=== PATIENT | male | born 1990 | race Caucasian/White ===

== ENCOUNTER 2017-08-29 09:58 | Emergency (ER) | payer MEDICAID ==
[~2017-08-29] VITALS: Ht 177.8 cm; Wt 64.0 kg
[~2017-08-29 09:58] MED LIST: NAPR-1144 PO
[2017-08-29 11:22] VITALS: BP 105/68
== END 2017-08-29 11:23 | disposition home or self-care (01) ==
LOC: ER 09:58
DX: Z48.01 Encounter for change or removal of surgical wound dressing (principal); L02.512 Cutaneous abscess of left hand; E11.9 Type 2 diabetes mellitus without complications; F17.200 Nicotine dependence, unspecified, uncomplicated; F15.10 Other stimulant abuse, uncomplicated; F11.10 Opioid abuse, uncomplicated; Z79.899 Other long term (current) drug therapy
CPT/HCPCS: 99282

== ENCOUNTER 2024-03-06 12:57 | Emergency (ER) | payer MEDICAID ==
[~2024-03-06] VITALS: Ht 170.2 cm; Wt 67.0 kg
[~2024-03-06 12:57] MED LIST changes: +IBUP-1985 PO
[2024-03-06 13:29] LABS: BASOPHILS # (AUTO) 0.1 X10'3 (0-0.2); BASOPHILS % (AUTO) 0.8 % (0-1); EOSINOPHILS # (AUTO) 0.4 X10'3 (0-0.9); EOSINOPHILS % (AUTO) 4.1 % (0-6); HEMATOCRIT 39.6 % (42.0-52.0); HEMOGLOBIN 13.1 g/dl (14.0-17.9); LYMPHOCYTES # (AUTO) 1.8 X10'3 (1.1-4.8); LYMPHOCYTES % (AUTO) 17.4 % (21-51); MEAN CORPUSCULAR HEMOGLOBIN 27.7 PG (27.0-31.0); MEAN CORPUSCULAR VOLUME 83.9 FL (78-98); MEAN PLATELET VOLUME 8.8 FL (7.4-10.4); MONOCYTES % (AUTO) 9.9 % (2-12); NEUTROPHILS # (AUTO) 7.2 X10'3 (1.8-7.7); NEUTROPHILS % (AUTO) 67.8 % (42-75); PLATELET COUNT 228 X10'3 (140-440); RED BLOOD COUNT 4.72 X10'6 (4.70-6.10); RED CELL DISTRIBUTION WIDTH 13.9 % (11.5-14.5); WHITE BLOOD COUNT 10.6 X10'3 (4.5-11.0)
[2024-03-06 13:40] LABS: ALBUMIN 3.1 G/DL (3.4-5.0); ANION GAP 5 (8-16); BLOOD UREA NITROGEN 6 MG/DL (7-18); CHLORIDE 103 MMOL/L (99-107); CREATININE 0.75 MG/DL (0.60-1.10); GLUCOSE 154 MG/DL (70-104); POTASSIUM 4.1 MMOL/L (3.5-5.1); SODIUM 137 MMOL/L (135-145); TOTAL CARBON DIOXIDE 28.6 MMOL/L (24-32); eCRCL 132 ML/MIN; eGFR > 90 ML/MIN
[2024-03-06] MEDS ORDERED: iohexol 300mg/ml 100ml inj. ONE (14:13)
[2024-03-06] MEDS: CefTRIAXone 1000mg IM Kit (w/lidocaine diluent) IM ONE (15:20)
[2024-03-06 15:24] VITALS: BP 116/79; PULSE 118; RESP 16; TEMP 98.2; O2SAT 96
[2024-03-06] MEDS ORDERED: SULF1TAB49 PO (16:19)
[2024-03-06] MEDS ORDERED: MUPI15CR12 TOP (16:19)
== END 2024-03-06 16:40 | disposition home or self-care (01) ==
LOC: ER 12:58
DX: L02.01 Cutaneous abscess of face (principal); E11.9 Type 2 diabetes mellitus without complications; F20.9 Schizophrenia, unspecified; F15.90 Other stimulant use, unspecified, uncomplicated; F11.90 Opioid use, unspecified, uncomplicated; Z79.899 Other long term (current) drug therapy; Z90.49 Acquired absence of other specified parts of digestive tract
CPT/HCPCS: 36415; 80048; 83605; 84145; 85025; 87040; 96372; 99283; J0696; Q9967

== ENCOUNTER 2025-03-01 17:12 | Emergency (ER) | payer MEDICAID ==
[~2025-03-01] VITALS: Ht 177.8 cm; Wt 94.1 kg
[~2025-03-01 17:12] MED LIST changes: -IBUP-1985 PO; +IBUP600T52 PO; +MUPI15CR12 TOP
[2025-03-01 17:38] VITALS: BP 114/84; PULSE 127; RESP 20; O2SAT 97
[2025-03-01] MEDS ORDERED: NYST15PO13 TOP (20:02)
--- NOTE | 2025-03-01 20:03 | Physician Documentation ---
History of Present Illness ~ General Chief Complaint: Multiple Medical Complaints Stated Complaint: FOOT SWOLLEN Time Seen by MD: 18:15 OK to notify your PCP?: Yes Primary Medical Doctor: Dr. Figueroa Source: patient Mode of Arrival: POV Exam Limitations: no limitations History of Present Illness Initial Comments 34-year-old male presents with his mother for his right foot being swollen as w ell as his left nipple being tender. He also describes that he for the past week he has had a rash in his groin which she has been putting diaper cream on. He states that he was sitting in a static position with 1 leg up and his right leg dangling off the site of the bed for the past 2 days and then he noticed the swelling and tightness in his foot. When I question his high heart rate on arrival, he admitted to meth use within the past 2 days. Medication Reconciliation Allergies: Coded Allergies: No Known Allergies (Unverified , 03/01/25) Scheduled Mupirocin Calcium (Mupirocin), 1 APPLIC TOP Q8H Naproxen Sodium (Naproxen Sodium), 1 TAB PO Q12H Nystatin (Nystatin), 1 APPLIC TOP Q12H Scheduled PRN Ibuprofen (Ibuprofen), 1 TAB PO Q6H PRN for pain Past Medical History Past Medical History: Diabetes, Schizophrenia Past Surgical History: appendectomy Alcohol Use: Sober Drug Use: methamphetamine, heroin Lives with: Family Lives In: Home Review of Systems All Other Systems at this time: Reviewed and Negative Physical Exam Physical Exam Vital Signs: RN Vital Signs have been reviewed: Yes, Temperature: 98.2, Source: Oral, Heart Rate: 127, Respiratory Rate: 20, BP: 114/84, Pulse Oximetry: 97, Weight: 94.090 Oxygen Flow Rate: 0 Pulse Oximetry Reflects: adequate oxygenation Physical Exam General: Alert, no apparent distress. HEENT: PERRL, EOMI, no injection, moist mucous membranes. Neck: Full range of motion. Respiratory: Lungs clear, no respiratory distress. Chest: No accessory muscle use. Left nipple tender to palpation. No masses or swelling noted. Bilateral gynecomastia. Cardiovascular: Regular rate and rhythm, no murmurs. Gastrointestinal: Soft, nontender, nondistended. Bowels sounds present. Extremities: Normal range of motion, no deformity. Neurologic: Oriented x4. Psychiatric: Normal mood and affect. Skin: Raised, erythematous, moist, shiny rash to bilateral groin extending to perineum. Nonpitting edema to right foot and ankle, nontender to palpation, no warmth or erythema, good CSM, good pulses, good sensation. Progress Results/Orders Reviewed/noted all lab results: Yes Results/Orders Vital Signs 03/01/25 03/01/25 17:38 20:23 Temp 98.2 98.2 Pulse 127 Resp 20 B/P (MAP) 114/84 Pulse Ox 97 O2 Flow Rate 0 Medical Decision Making Additional info obtained from: old records, family Findings 34-year-old male with a rash to his groin as well as some edema to his right foot and ankle and tenderness of left nipple. Physical exam reveals what appears to be a yeast infection to his inguinal folds, tenderness to palpation of left nipple otherwise normal breast exam, and non pitting edema to his right foot and ankle. There has been no injuries to his foot he has no pain, no warmth, no indications for infection. Mother was requesting an antibiotic to help with the swelling of his right foot, I educated her that there is no signs of infection or signs of DVT and this foot so there is no indication for any antibiotic. He reports that he was sitting in the same position for roughly 2 days straight without moving can use playing a video game with that leg dangling off the bed. We extensively discussed that he needs to have a better diet with less salt as he reports drinking a gallon of chocolate milk a day, daily exercise as well as not keeping legs dangling for long periods of time. For his chest exam we discussed the bilateral gynecomastia and he was recently started on risperidone and this is a known side effect of that. He met with his psychiatrist yesterday to discuss the side effects of his risperidone and it was found that since he is doing well on this medication for his mental health, the gynecomastia is a tolerated side effect. I do not feel any masses or abnormalities in the breast exam that would indicate any signs of infection or other worrisome conditions. For the rash on his groin, I prescribed nystatin powder and educated him to keep this area clean and dry as yeast so arrives in moist and warm environments. He has been putting diaper cream in the area and I educated him to stop using that cream and start using the nystatin powder that has been prescribed. Him and his mother agree to the plan. Differential Diagnosis DVT, heart failure, cellulitis, breast mass. Departure Disposition: 01 HOME / SELF CARE / HOMELESS Impression: Primary Impression: Candidal skin infection Condition: Stable Additional Instructions: Please use the nystatin powder until the rash in your groin clears up. Make sure to keep your legs elevated tonight to help decrease the swelling in your right foot. Try not to sit in the same position for too long as this can cause swelling in your feet. Also work on eating a healthier diet that is lower in salt as this can contribute to swelling in your feet. Referrals: NO PRIMARY CARE PROVIDER (PCP) Prescriptions Nystatin (Nystatin) 100,000 Unit/Gram Powder 1 APPLIC TOP Q12H, #60 GM 0 Refills apply to affected area(s) until healed. Prov: MARCELA MCELROY 03/01/25 Education Educated: Patient, Family Educated regarding: diagnosis, treatment, prognosis, need for follow up Additional Comment Medical Screen Exam This patient recieved a medical screening examination. After reviewing the individual's medical complaints with presenting symptoms and performing an appropriate physical examination, it was determined that no immediate life- threatening emergency medical condition is present. This individual is also not a women having contractions. Signature Scribe Signature: . Attestation: Scribed for Marcela Mcelroy by Marcela Newsome NP . 03/01/25 20:37 Parts of this note were created using netomat voice recognition software program. While efforts were made to correct any mistakes made by this voice recognition software program, nonsensical phrases may remain in this note. In addition, there may be errors and syntax, grammar, content and spelling. MARCELA MCELROY Mar 01, 2025 20:03
[2025-03-01 20:23] VITALS: TEMP 98.2
== END 2025-03-01 20:27 | disposition home or self-care (01) ==
LOC: ER 17:13
DX: B37.2 Candidiasis of skin and nail (principal); E11.9 Type 2 diabetes mellitus without complications; F20.9 Schizophrenia, unspecified; F15.90 Other stimulant use, unspecified, uncomplicated; F11.90 Opioid use, unspecified, uncomplicated; Z90.49 Acquired absence of other specified parts of digestive tract; Z79.899 Other long term (current) drug therapy
CPT/HCPCS: 99283